=== PATIENT | male | born 1990 | race Two or more races ===

== ENCOUNTER 2021-11-14 19:40 | Outpatient (CLI) | payer OTHER ==
[2021-11-14 19:45] VITALS: BP 106/63
[2021-11-14] MEDS ORDERED: QUEtiapine FUMARATE 25 MG TABLET PO ONE (22:00)
[2021-11-14] MEDS ORDERED: ACETAMINOPHEN 325 MG TABLET PO PRN (22:45)
[2021-11-14] MEDS ORDERED: MAG HYDROX/AL HYDROX/SIMETH ES 30 ML SUSPENSION UDCUP PO PRN (22:45)
[2021-11-15 00:15] VITALS: BP 95/56
[2021-11-15 04:50] VITALS: BP 111/70
[2021-11-15 07:59] VITALS: BP 116/74
[2021-11-15 08:00] VITALS: BP 116/74
== END 2021-11-15 08:55 | disposition home or self-care (01) ==
LOC: CSU 19:40
PROVIDERS: ATTEND Psychiatry & Neurology Geriatric Psychiatry
DX: F32.A Depression, unspecified (principal); F39 Unspecified mood [affective] disorder; F41.9 Anxiety disorder, unspecified; G47.00 Insomnia, unspecified
CPT/HCPCS: 90792; Z7610